=== PATIENT | male | born 1950 | race American Indian/Alaskan Native ===

== ENCOUNTER 2016-05-04 07:25 | Outpatient (CLI) | payer MEDICARE ==
--- NOTE | 2016-05-04 09:30 | Cat Scan Report ---
CT CHEST WITHOUT CONTRAST INDICATION: Right lung nodule. COMPARISON: 02/04/2016. FINDINGS: Noncontrast chest CT again demonstrates a noncalcified 7 mm peripheral right middle lobe nodule, axial image 166, series 2. The other left apical nodule however is slightly more prominent at approximately 5 mm, axial image 47, previously 3-4 mm. Approximately 3 mm left lower lobe peripheral calcified granuloma posteriorly is stable, axial image 201, series 2. Otherwise unremarkable lungs without suspicious new nodules or masses. No effusions. Stable heart and great vessels. Patent airway. Few small mediastinal and AP window lymph nodes again noted with the largest precarinal lymph node approximately 9 mm in the short axis. Unremarkable thyroid. Stable right upper anterior chest wall port tip in the SVC. Slight bilateral gynecomastia. Multifocal anterior chest wall skin thickening as on axial series 2, images 76-117 again noted. Nonspecific mid to distal esophageal wall thickening, not excluded for gastroesophageal reflux and/or hiatal hernia, amongst others. Few atherosclerotic calcifications. Obtained upper abdominal images again demonstrate cholecystectomy clips, gastric bypass changes, nonobstructing 4 mm right upper renal calculus and bilateral renal cysts, latter again more in size and number on right than left. Healed midline ventral incision as well. Multilevel degenerative spurring along the imaged spine. Slight diffuse subcutaneous edema. CONCLUSION: 1. No significant interval change in larger noncalcified right middle lobe nodule and a left lower lobe calcified granuloma, as described. However, the smaller left upper lobe noncalcified nodule is slightly more prominent/larger. Though their underlying etiology still uncertain at this time, neoplastic/metastatic etiology for the latter not entirely excluded at this time in this patient with history of stomach cancer. It is however too small to accurately characterize with PET-CT or biopsy. Followup CT in approximately 3 months recommended in the given setting towards 2-year surveillance to establish benignity. Also, direct comparison with more remote relevant CT imaging would be very helpful, if available. 2. Various other incidental findings, including esophageal thickening, right-sided chest port and various other imaged upper abdominal findings, as described. Thank you for the opportunity to participate in this patient's care.
== END 2016-05-04 07:26 | disposition home or self-care (01) ==
LOC: CT 07:25
PROVIDERS: ATTEND Internal Medicine Hematology & Oncology
DX: C16.9 Malignant neoplasm of stomach, unspecified (principal); C16.4 Malignant neoplasm of pylorus; I10 Essential (primary) hypertension; N28.1 Cyst of kidney, acquired; I70.0 Atherosclerosis of aorta; K21.9 Gastro-esophageal reflux disease without esophagitis; K44.9 Diaphragmatic hernia without obstruction or gangrene; R91.1 Solitary pulmonary nodule; N62 Hypertrophy of breast; L92.9 Granulomatous disorder of the skin and subcutaneous tissue, unspecified; R60.9 Edema, unspecified; Z90.49 Acquired absence of other specified parts of digestive tract
CPT/HCPCS: 36415; 71250; 82565; 84520

== ENCOUNTER 2016-07-22 08:50 | Outpatient (CLI) | payer MEDICARE ==
--- NOTE | 2016-07-22 15:01 | Cat Scan Report ---
CT of the chest and abdomen with oral contrast. Intravenous contrast could not be used due to the patient's elevated creatinine. History: Anemia, gastric carcinoma. Findings: Comparison is made to the previous chest CT performed on May 04, 2016. No previous abdominal CT. Findings: The mediastinal and hilar regions appear normal. No axillary adenopathy is seen. The noncalcified pulmonary nodule in the left upper lobe now measures 6.6 mm in diameter as compared to 5 mm on the previous study in April. The pulmonary nodule in the right middle lobe laterally is unchanged. No new pulmonary nodules are seen. A calcified granuloma in the left lower lobe is again noted. There is no pleural fluid. The study of the abdomen demonstrates a normal liver and spleen. Postoperative changes of the stomach appear stable. The stomach is collapsed and the wall thickness cannot be assessed. The pancreas is unremarkable. Multiple bilateral renal cysts are noted, greater on the right. There is a 5 mm nonobstructing stone in the upper pole of the right kidney. No retroperitoneal adenopathy is seen. Surgical clips are noted in the gallbladder bed. Impression: 1. The pulmonary nodule in the left upper lobe has again increased slightly in size from 5 mm to 6.6 mm. This is still too small to perform CT directed biopsy or PET scan. Continued surveillance is recommended. 2. Stable right middle lobe pulmonary nodule and left lower lobe granuloma. 3. Stable postoperative changes of the stomach. 4. Multiple bilateral renal cysts. A 5 mm nonobstructing stone is seen in the right kidney.
== END 2016-07-22 08:51 | disposition home or self-care (01) ==
LOC: CT 08:50
PROVIDERS: ATTEND Internal Medicine Hematology & Oncology
DX: C16.4 Malignant neoplasm of pylorus (principal); C16.9 Malignant neoplasm of stomach, unspecified; E11.65 Type 2 diabetes mellitus with hyperglycemia; I10 Essential (primary) hypertension; D63.0 Anemia in neoplastic disease; R91.1 Solitary pulmonary nodule; J84.10 Pulmonary fibrosis, unspecified; N28.1 Cyst of kidney, acquired; N20.0 Calculus of kidney; K31.89 Other diseases of stomach and duodenum
CPT/HCPCS: 36415; 71250; 74150; 82565; 84520

== ENCOUNTER 2016-08-06 11:00 | Outpatient (CLI) | payer MEDICARE ==
--- NOTE | 2016-08-07 16:17 | PET Report ---
PET/CT:08/06/16 11:00:00 CLINICAL: Gastric cancer restaging. Pulmonary nodules. RADIOPHARMACEUTICAL: 12.56mCi F18-FDG. COMPARISON: CT CAP 07/22/16 and 10/31/15 PET/CT TECHNIQUE- Following intravenous injection of F-18 FDG and an approximately 60 minute uptake period, CT and PET images from the mid skull to the upper thighs were acquired with the patient in the fasted state. No contrast was administered. The CT protocol used for this PET CT study is designed for attenuation correction and anatomic localization of PET abnormalities. This juvenile counselor CT is not desired to produce and cannot replace, axevc-zw-nrk-art diagnostic CT scans with specific imaging protocols for different body parts and indications. Plasma glucose at the time of this test: 159g/dl. The standardized uptake values (SUV) are normalized to patient body weight and indicate the highest activity concentration (SUV max) in a given disease site. FINDINGS: Brain--Physiologic FDG uptake in the visualized regions of the brain. Neck--Physiologic FDG uptake . Chest--Physiologic FDG uptake in mediastinal blood pool and myocardium. Lungs--No abnormal uptake. A 6.6 mm non-FDG avid left apical noncalcified lung nodule and a 6 mm non-FDG avid noncalcified right middle lobe lung nodule. Pleura/pericardium--No abnormal uptake. Thoracic nodes--Several small less than 1 cm right axillary lymph nodes with FDG uptake and an SUV max of 2.9. Hepatobiliary--No abnormal uptake. Liver background SUV mean, as a reference for comparing FDG studies, is 5.1 compared to 4.4 on the last exam. No liver mass. Spleen--No abnormal uptake. Pancreas--No abnormal uptake. Adrenal Glands--No abnormal uptake. Kidneys/Ureters/Bladder--No abnormal uptake. Abdominopelvic Nodes--No abnormal uptake. Bowel/Peritoneum/Mesentery--Extensive probably benign FDG uptake in small and large bowel. Pelvic organs--No abnormal uptake. Bones/Soft Tissues--No abnormal uptake. Other findings: Status post partial gastrectomy with stable nonspecific gastric wall thickening. Increased FDG uptake in the gastric wall is of uncertain significance. Although there is greater FDG uptake in the gastric wall, the SUV is stable at 5.4. Brachytherapy seeds in the prostate. Stable nonspecific rectal wall thickening with no FDG uptake. IMPRESSION- 1. Non-FDG avid noncalcified right middle lobe and left apical lung nodules. 2. Small right axillary lymph nodes with mild FDG uptake are of uncertain significance. 3. Status post partial gastrectomy with nonspecific gastric wall thickening.
== END 2016-08-06 11:01 | disposition home or self-care (01) ==
LOC: PET 11:00
PROVIDERS: ATTEND Internal Medicine Hematology & Oncology
DX: C16.9 Malignant neoplasm of stomach, unspecified (principal); R91.1 Solitary pulmonary nodule; C16.4 Malignant neoplasm of pylorus; E11.65 Type 2 diabetes mellitus with hyperglycemia; I10 Essential (primary) hypertension; Z90.3 Acquired absence of stomach [part of]
CPT/HCPCS: 78815; 82962; A9552

== ENCOUNTER 2017-02-04 10:57 | Outpatient (CLI) | payer MEDICARE ==
--- NOTE | 2017-02-06 11:29 | PET Report ---
PET/CT:02/04/17 10:57:00 CLINICAL: Malignant neoplasm of stomach restaging. RADIOPHARMACEUTICAL: 13.2mCi F18-FDG. COMPARISON: 08/06/16 PET/CT TECHNIQUE- Following intravenous injection of F-18 FDG and an approximately 60 minute uptake period, CT and PET images from the mid skull to the upper thighs were acquired with the patient in the fasted state. No contrast was administered. The CT protocol used for this PET CT study is designed for attenuation correction and anatomic localization of PET abnormalities. This fishing vessel mate CT is not desired to produce and cannot replace, zzrhh-kh-swi-art diagnostic CT scans with specific imaging protocols for different body parts and indications. Plasma glucose at the time of this test: 133g/dl. The standardized uptake values (SUV) are normalized to patient body weight and indicate the highest activity concentration (SUV max) in a given disease site. FINDINGS: Brain--Physiologic FDG uptake in the visualized regions of the brain. Neck--Physiologic FDG uptake . Chest--Physiologic FDG uptake in mediastinal blood pool and myocardium. Lungs--The previously described noncalcified non-FDG avid left upper lobe and right middle lobe lung nodules are not significantly changed. The right middle lobe nodule measures 7 mm compared to 6 mm and the left apical lung nodule measures 6.2 mm compared to 6.6 mm. No new pulmonary nodule or mass. Pleura/pericardium--No abnormal uptake. Thoracic nodes--No abnormal uptake. Hepatobiliary--No abnormal uptake. Liver background SUV mean, as a reference for comparing FDG studies, is 4.3 compared to 4.5 on the last exam. No liver mass. Spleen--No abnormal uptake. Pancreas--No abnormal uptake. Adrenal Glands--No abnormal uptake. Kidneys/Ureters/Bladder--No abnormal uptake. Abdominopelvic Nodes--No abnormal uptake. No lymphadenopathy. Bowel/Peritoneum/Mesentery--No abnormal uptake. Pelvic organs--No abnormal uptake. Bones/Soft Tissues--No abnormal uptake. No suspicious bone lesions. Other findings: Status post partial gastrectomy with stable nonspecific gastric wall thickening. Presumably benign FDG in the central stomach at the gastric mucosa is stable. Brachytherapy seeds in the prostate. IMPRESSION- Stable non-FDG avid left apical and right middle lobe noncalcified lung nodules. Recommend continued CT surveillance. Stable nonspecific gastric wall thickening status post partial gastrectomy. No new findings.
== END 2017-02-04 10:58 | disposition home or self-care (01) ==
LOC: PET 10:57
PROVIDERS: ATTEND Internal Medicine Hematology & Oncology
DX: C16.9 Malignant neoplasm of stomach, unspecified (principal); I13.0 Hypertensive heart and chronic kidney disease with heart failure and stage 1 through stage 4 chronic kidney disease, or unspecified chronic kidney disease; N18.4 Chronic kidney disease, stage 4 (severe); I50.9 Heart failure, unspecified; E11.22 Type 2 diabetes mellitus with diabetic chronic kidney disease; D63.1 Anemia in chronic kidney disease; E11.65 Type 2 diabetes mellitus with hyperglycemia; R91.8 Other nonspecific abnormal finding of lung field; Z90.3 Acquired absence of stomach [part of]
CPT/HCPCS: 78815; 82962; A9552